=== PATIENT | male | born 1990 | race Caucasian/White ===

== ENCOUNTER 2020-08-26 19:29 | Emergency (ER) | payer OTHER ==
[~2020-08-26] VITALS: Ht 177.8 cm; Wt 117.9 kg
[2020-08-26 19:59] VITALS: Ht 177.8 cm; Wt 117.9 kg
[2020-08-26 21:39] VITALS: BP 155/71
== END 2020-08-26 21:39 | disposition home or self-care (01) ==
LOC: ED 19:29
DX: U07.1 COVID-19 (principal); J12.89 Other viral pneumonia; F17.210 Nicotine dependence, cigarettes, uncomplicated
CPT/HCPCS: 99406; U0003